=== PATIENT | male | born 1960 | race Caucasian/White ===

== ENCOUNTER 2016-12-23 12:40 | Inpatient (IN) | payer BC ==
[2016-12-23 13:02] VITALS: BMI 28.0
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
[2016-12-23] MEDS ORDERED: MAGNESIUM HYDROX 2400MG/30ML ORAL SUSPENSION 30 ML CUP PO PRN (16:34)
[2016-12-23] MEDS ORDERED: ACETAMINOPHEN 325 MG TABLET (FP) PO PRN (16:34)
[2016-12-23] MEDS ORDERED: chlordiazePOXIDE HCL 25 MG CAPSULE PO PRN (16:34)
[2016-12-23] MEDS ORDERED: MAG HYDROX/AL HYDROX/SIMETH 30 ML UNIT-DOSE CUP PO PRN (16:34)
[2016-12-23] MEDS ORDERED: guaiFENesin/D-METHORPHAN HB 10 ML UNIT-DOSE CUPS PO PRN (16:34)
[2016-12-23] MEDS ORDERED: P-EPHED 60MG/TRIPROLIDI 2.5MG TABLET PO PRN (16:34)
[2016-12-23] MEDS ORDERED: METHADONE HCL 10 MG TABLET (FOR DETOX USE ONLY) PO ONE ×2 (16:34→23:00)
[2016-12-23] MEDS ORDERED: MENTHOL/PHENOL 1 EACH UD MM PRN (16:34)
[2016-12-23] MEDS ORDERED: LOPERAMIDE HCL 2 MG CAPSULE PO PRN (16:34)
[2016-12-23] MEDS ORDERED: MAGNESIUM CITRATE 300 ML BOTTLE PO PRN (16:34)
[2016-12-23 20:56] LABS: URINE APPEARANCE CLEAR; URINE BILIRUBIN NEGATIVE (NEGATIVE); URINE BLOOD NEGATIVE (NEGATIVE); URINE COLOR YELLOW; URINE GLUCOSE (UA) NEGATIVE (NEGATIVE); URINE KETONE TRACE (NEGATIVE); URINE LEUK ESTERASE NEGATIVE (NEGATIVE); URINE NITRITE NEGATIVE (NEGATIVE); URINE PROTEIN NEGATIVE (NEGATIVE); URINE UROBILINOGEN NEGATIVE E.U./dl (0.2-1.0)
[2016-12-23] MEDS: THIAMINE HCL 100 MG TABLET (FP) PO SCH (22:04)
[2016-12-23] MEDS: BACITRACIN 0.9 GM PACKET TP SCH (22:04)
[2016-12-23] MEDS: TOLNAFTATE 1% CREAM 15 GM TUBE TP SCH (22:04)
[2016-12-23] MEDS: chlordiazePOXIDE HCL 25 MG CAPSULE PO SCH (22:04)
[2016-12-23] MEDS: diphenhydrAMINE HCL 50 MG CAPSULE PO PRN (22:05)
[2016-12-24] MEDS: chlordiazePOXIDE HCL 25 MG CAPSULE PO SCH ×4 (05:57→22:02)
[2016-12-24] MEDS ORDERED: METHADONE HCL 10 MG TABLET (FOR DETOX USE ONLY) PO SCH (10:00)
[2016-12-24 10:07] LABS: MCH 29.6 pg (25.7-33.7); MCHC 33.4 g/dl (32.0-35.9); MEAN CELL VOLUME 88.7 fl (80-96); MEAN PLT VOLUME 8.6 fl (7.5-11.1); PLATELET COUNT 216 K/MM3 (134-434); RDW 14.1 % (11.9-15.9); WHITE BLOOD COUNT 8.8 K/mm3 (4.0-10.0)
[2016-12-24] MEDS: PRENATAL VITAMINS W/ FOLIC ACID TABLET (FP) PO SCH (10:10)
[2016-12-24] MEDS: BACITRACIN 0.9 GM PACKET TP SCH ×2 (10:10→22:02)
[2016-12-24] MEDS: TOLNAFTATE 1% CREAM 15 GM TUBE TP SCH ×2 (10:11→22:02)
[2016-12-24 10:32] LABS: ALBUMIN 3.1 g/dl (3.4-5.0); ALK PHOS 66 U/L (45-117); ANION GAP 10 (8-16); BILIRUBIN,TOTAL 0.2 mg/dL (0.2-1.0); CALCIUM 8.5 mg/dL (8.5-10.1); CO2 25 mmol/L (21-32); CREATININE 1.1 mg/dL (0.7-1.3); GLUCOSE,RANDOM 89 mg/dL (74-106); SGOT/AST 21 U/L (15-37); SGPT/ALT 23 U/L (12-78); TOT PROT 6.1 g/dl (6.4-8.2)
--- NOTE | 2016-12-24 11:25 | PN ---
[facility] CIWA - CIWA Score Nausea/Vomitin-Int. Nausea w/Dry Heave Muscle Tremors: 4-Moderate,w/Arms Extend Anxiety: 4-Mod. Anxious/Guarded Agitation: 4-Moderately Restless Paroxysmal Sweats: 3 Orientation: 0-Oriented Tacttile Disturbances: 1-Very Mild Itch/Numbness Auditory Disturbances: 0-None Visual Disturbances: 0-None Headache: 0-None Present CIWA-Ar Total Score: 20 S COWS - Scale Resting Pulse: 1= [place] 81-100 Sweatin= Chills/Flushing Restless Observation: 1= Difficult to Sit Still Pupil Size: 1= Pupils >than Normal Bone or Joint Aches: 1= Mild Discomfort Runny Nose/ Eye Tearin= Nasal Congestion GI Upset > 30mins: 2= Nausea/Diarrhea Tremor Observation of Outstretched Hands: 2= Slight Tremor Visible Yawning Observation: 1= 1-2x During Session Anxiety or Irritability: 2=Irritable/Anxious Goose Flesh Skin: 3=Piloerection COWS Score: 16 S Progress Note (SOAP) Subjective: nausea, sweats, interrupted sleep, anxiety, tremor Objective: 12/24/16 11:23 Vital Signs - 8 hr 12/24/16 12/24/16 12/24/16 03:30 06:20 09:54 Temperature 97.3 F L 96.2 F L Pulse Rate 61 64 Respiratory 18 18 18 Rate Blood Pressure 164/98 129/90 Laboratory Tests 12/23/16 12/24/16 12/24/16 19:00 07:00 07:00 WBC 8.8 RBC 4.32 Hgb 12.8 Hct 38.4 MCV 88.7 MCHC 33.4 RDW 14.1 Plt Count 216 MPV 8.6 Sodium 140 Potassium 4.1 Chloride 105 Carbon Dioxide 25 Anion Gap 10 BUN 15 D Creatinine 1.1 Creat Clearance w eGFR > 60 Random Glucose 89 Calcium 8.5 Total Bilirubin 0.2 D AST 21 ALT 23 Alkaline Phosphatase 66 Total Protein 6.1 L Albumin 3.1 L Urine Color Yellow Urine Appearance Clear Urine pH 5.0 Ur Specific [place] 1.029 Urine Protein Negative Urine Glucose (UA) Negative Urine Ketones Trace H Urine Blood Negative Urine Nitrite Negative Urine Bilirubin Negative Urine Urobilinogen Negative Ur Leukocyte Esterase Negative hypoalbuminemia Assessment: 12/24/16 11:23 withdrawal sx, hypoalbuminemia 2/2 malnutrition 2/2 substance use Plan: cont detox, dieateray cousneling re: healthy eating habits, encoruage fluids and ambualtion
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
--- NOTE | 2016-12-24 16:11 | EKG ---
Test Reason : Blood Pressure : / mmHG Vent. Rate : 070 BPM Atrial Rate : 070 BPM P-R Int : 142 ms QRS Dur : 092 ms QT Int : 396 ms P-R-T Axes : 039 048 044 degrees QTc Int : 427 ms SINUS RHYTHM WITH PREMATURE ATRIAL COMPLEXES NO PREVIOUS ECGS AVAILABLE Confirmed by LLUVIA LOVE MD ([id number]) on 12/24/2016 4:11:26 PM Referred By: Confirmed By:LLUVIA LOVE MD
[2016-12-24] MEDS: THIAMINE HCL 100 MG TABLET (FP) PO SCH (22:02)
[2016-12-24] MEDS: diphenhydrAMINE HCL 50 MG CAPSULE PO PRN (22:03)
[2016-12-25] MEDS: chlordiazePOXIDE HCL 25 MG CAPSULE PO SCH ×3 (05:36→17:28)
--- NOTE | 2016-12-25 09:36 | PN ---
[facility] CIWA - CIWA Score Nausea/Vomitin-Mild Nausea/No Vomiting Muscle Tremors: 3 Anxiety: 3 Agitation: 3 Paroxysmal Sweats: 3 Orientation: 0-Oriented Tacttile Disturbances: 1-Very Mild Itch/Numbness Auditory Disturbances: 0-None Visual Disturbances: 0-None Headache: 1-Very Mild CIWA-Ar Total Score: 15 BHS COWS - Scale Resting Pulse: 0= [place] 80 or Below Sweatin= Chills/Flushing Restless Observation: 1= Difficult to Sit Still Pupil Size: 2= Moderately Dilated Bone or Joint Aches: 1= Mild Discomfort Runny Nose/ Eye Tearin= Nasal Congestion GI Upset > 30mins: 1= Stomach Cramp Tremor Observation of Outstretched Hands: 1= Tremor [place], Not Seen Yawning Observation: 0= None Anxiety or Irritability: 1=Feels Anxious/Irritable Goose Flesh Skin: 0=Smooth Skin COWS Score: 9 BHS Progress Note (SOAP) Subjective: Nausea, Tremors, Anxiety, Interrupted sleep Objective: Vital Signs Temperature 96.6 F L 12/25/16 06:04 Pulse Rate 72 12/25/16 06:04 Respiratory Rate 18 12/25/16 06:04 Blood Pressure 133/92 12/25/16 06:04 O2 Sat by Pulse Oximetry (%) Laboratory Last Values WBC 8.8 K/mm3 (4.0-10.0) 12/24/16 07:00 RBC 4.32 M/mm3 (4.00-5.60) 12/24/16 07:00 Hgb 12.8 GM/dL (11.7-16.9) 12/24/16 07:00 Hct 38.4 % (35.4-49) 12/24/16 07:00 MCV 88.7 fl (80-96) 12/24/16 07:00 MCHC 33.4 g/dl (32.0-35.9) 12/24/16 07:00 RDW 14.1 % (11.9-15.9) 12/24/16 07:00 Plt Count 216 K/MM3 (134-434) 12/24/16 07:00 MPV 8.6 fl (7.5-11.1) 12/24/16 07:00 Sodium 140 mmol/L (136-145) 12/24/16 07:00 Potassium 4.1 mmol/L (3.5-5.1) 12/24/16 07:00 Chloride 105 mmol/L (98-107) 12/24/16 07:00 Carbon Dioxide 25 mmol/L (21-32) 12/24/16 07:00 Anion Gap 10 (8-16) 12/24/16 07:00 BUN 15 mg/dL (7-18) D 12/24/16 07:00 Creatinine 1.1 mg/dL (0.7-1.3) 12/24/16 07:00 Creat Clearance w eGFR > 60 (>60) 12/24/16 07:00 Random Glucose 89 mg/dL (74-106) 12/24/16 07:00 Calcium 8.5 mg/dL (8.5-10.1) 12/24/16 07:00 Total Bilirubin 0.2 mg/dL (0.2-1.0) D 12/24/16 07:00 AST 21 U/L (15-37) 12/24/16 07:00 ALT 23 U/L (12-78) 12/24/16 07:00 Alkaline Phosphatase 66 U/L (45-117) 12/24/16 07:00 Total Protein 6.1 g/dl (6.4-8.2) L 12/24/16 07:00 Albumin 3.1 g/dl (3.4-5.0) L 12/24/16 07:00 Urine Color Yellow 12/23/16 19:00 Urine Appearance Clear 12/23/16 19:00 Urine pH 5.0 (5.0-8.0) 12/23/16 19:00 Ur Specific [place] 1.029 (1.001-1.035) 12/23/16 19:00 Urine Protein Negative (NEGATIVE) 12/23/16 19:00 Urine Glucose (UA) Negative (NEGATIVE) 12/23/16 19:00 Urine Ketones Trace (NEGATIVE) H 12/23/16 19:00 Urine Blood Negative (NEGATIVE) 12/23/16 19:00 Urine Nitrite Negative (NEGATIVE) 12/23/16 19:00 Urine Bilirubin Negative (NEGATIVE) 12/23/16 19:00 Urine Urobilinogen Negative E.U./dl (0.2-1.0) 12/23/16 19:00 Ur Leukocyte Esterase Negative (NEGATIVE) 12/23/16 19:00 RPR Titer Nonreactive (NONREACTIVE) 12/24/16 07:00 labs noted Assessment: 12/25/16 09:41 withdrawal symptoms 12/25/16 09:53 Plan: Continue Detox
[2016-12-25] MEDS: PRENATAL VITAMINS W/ FOLIC ACID TABLET (FP) PO SCH (10:07)
[2016-12-25] MEDS: BACITRACIN 0.9 GM PACKET TP SCH ×2 (10:07→22:04)
[2016-12-25] MEDS: METHADONE HCL 5 MG TABLET (FOR DETOX USE ONLY) PO SCH (10:08)
[2016-12-25] MEDS: TOLNAFTATE 1% CREAM 15 GM TUBE TP SCH ×2 (10:08→22:04)
[2016-12-25] MEDS ORDERED: NICOTINE POLACRILEX 2 MG GUM BUC PRN (12:32)
[2016-12-25] MEDS: NICOTINE 21 MG/24 HOURS TOPICAL PATCH TD SCH (13:11)
[2016-12-25] MEDS: THIAMINE HCL 100 MG TABLET (FP) PO SCH (22:04)
[2016-12-25] MEDS: diphenhydrAMINE HCL 50 MG CAPSULE PO PRN (22:04)
[2016-12-25] MEDS: chlordiazePOXIDE 5 MG CAPSULE PO SCH (22:04)
[2016-12-25] MEDS: AMMONIUM LACTATE 12% LOTION 225 GM BOTTLE TP PRN (22:59)
[2016-12-26] MEDS: chlordiazePOXIDE 5 MG CAPSULE PO SCH ×3 (05:42→17:11)
[2016-12-26] MEDS: PRENATAL VITAMINS W/ FOLIC ACID TABLET (FP) PO SCH (10:01)
[2016-12-26] MEDS: NICOTINE 21 MG/24 HOURS TOPICAL PATCH TD SCH (10:01)
[2016-12-26] MEDS: TOLNAFTATE 1% CREAM 15 GM TUBE TP SCH ×3 (10:01→22:02)
[2016-12-26] MEDS: BACITRACIN 0.9 GM PACKET TP SCH ×2 (10:01→22:03)
[2016-12-26] MEDS: METHADONE HCL 5 MG TABLET (FOR DETOX USE ONLY) PO SCH (10:01)
--- NOTE | 2016-12-26 12:11 | PN ---
BHS Progress Note (SOAP) Subjective: Anxiety, sweating, interrupted sleep Objective: 12/26/16 12:09 Last Vital Signs Temp Pulse Resp BP Pulse Ox 97.5 F L 92 H 20 105/74 12/26/16 09:42 12/26/16 09:42 12/26/16 09:42 12/26/16 09:42 Laboratory Tests 12/23/16 12/24/16 12/24/16 19:00 07:00 07:00 WBC 8.8 RBC 4.32 Hgb 12.8 Hct 38.4 MCV 88.7 MCHC 33.4 RDW 14.1 Plt Count 216 MPV 8.6 Sodium 140 Potassium 4.1 Chloride 105 Carbon Dioxide 25 Anion Gap 10 BUN 15 D Creatinine 1.1 Creat Clearance w eGFR > 60 Random Glucose 89 Calcium 8.5 Total Bilirubin 0.2 D AST 21 ALT 23 Alkaline Phosphatase 66 Total Protein 6.1 L Albumin 3.1 L Urine Color Yellow Urine Appearance Clear Urine pH 5.0 Ur Specific [place] 1.029 Urine Protein Negative Urine Glucose (UA) Negative Urine Ketones Trace H Urine Blood Negative Urine Nitrite Negative Urine Bilirubin Negative Urine Urobilinogen Negative Ur Leukocyte Esterase Negative RPR Titer 12/24/16 07:00 WBC RBC Hgb Hct MCV MCHC RDW Plt Count MPV Sodium Potassium Chloride Carbon Dioxide Anion Gap BUN Creatinine Creat Clearance w eGFR Random Glucose Calcium Total Bilirubin AST ALT Alkaline Phosphatase Total Protein Albumin Urine Color Urine Appearance Urine pH Ur Specific [place] Urine Protein Urine Glucose (UA) Urine Ketones Urine Blood Urine Nitrite Urine Bilirubin Urine Urobilinogen Ur Leukocyte Esterase RPR Titer Nonreactive Labs noted Assessment: 12/26/16 12:10 Withdrawal symptoms Plan: Continue detox
[2016-12-26] MEDS: IBUPROFEN 400 MG TABLET (FP) PO PRN (17:10)
[2016-12-26] MEDS: diphenhydrAMINE HCL 50 MG CAPSULE PO PRN (22:03)
[2016-12-26] MEDS: THIAMINE HCL 100 MG TABLET (FP) PO SCH (22:03)
[2016-12-26] MEDS: chlordiazePOXIDE HCL 10 MG CAPSULE PO SCH (22:03)
[2016-12-26] MEDS: AMMONIUM LACTATE 12% LOTION 225 GM BOTTLE TP PRN (22:03)
[2016-12-27] MEDS: diphenhydrAMINE HCL 50 MG CAPSULE PO PRN ×2 (00:07→22:07)
[2016-12-27] MEDS: chlordiazePOXIDE HCL 10 MG CAPSULE PO SCH ×3 (05:37→16:53)
[2016-12-27] MEDS ORDERED: METHADONE HCL 10 MG TABLET (FOR DETOX USE ONLY) PO SCH (10:00)
[2016-12-27] MEDS: PRENATAL VITAMINS W/ FOLIC ACID TABLET (FP) PO SCH (10:02)
[2016-12-27] MEDS: BACITRACIN 0.9 GM PACKET TP SCH ×2 (10:02→22:07)
[2016-12-27] MEDS: TOLNAFTATE 1% CREAM 15 GM TUBE TP SCH ×2 (10:03→22:07)
[2016-12-27] MEDS: NICOTINE 21 MG/24 HOURS TOPICAL PATCH TD SCH (10:03)
--- NOTE | 2016-12-27 10:53 | PN ---
BHS Progress Note (SOAP) Subjective: SWEATING,INTERRUPTED SLEEP,RESTLESS Objective: 12/27/16 10:52 Vital Signs - 8 hr 12/27/16 12/27/16 12/27/16 03:30 05:55 09:31 Temperature 96.0 F L 97.5 F L Pulse Rate 68 76 Respiratory 18 18 18 Rate Blood Pressure 126/88 112/79 Laboratory Last Values WBC 8.8 K/mm3 (4.0-10.0) 12/24/16 07:00 RBC 4.32 M/mm3 (4.00-5.60) 12/24/16 07:00 Hgb 12.8 GM/dL (11.7-16.9) 12/24/16 07:00 Hct 38.4 % (35.4-49) 12/24/16 07:00 MCV 88.7 fl (80-96) 12/24/16 07:00 MCHC 33.4 g/dl (32.0-35.9) 12/24/16 07:00 RDW 14.1 % (11.9-15.9) 12/24/16 07:00 Plt Count 216 K/MM3 (134-434) 12/24/16 07:00 MPV 8.6 fl (7.5-11.1) 12/24/16 07:00 Sodium 140 mmol/L (136-145) 12/24/16 07:00 Potassium 4.1 mmol/L (3.5-5.1) 12/24/16 07:00 Chloride 105 mmol/L (98-107) 12/24/16 07:00 Carbon Dioxide 25 mmol/L (21-32) 12/24/16 07:00 Anion Gap 10 (8-16) 12/24/16 07:00 BUN 15 mg/dL (7-18) D 12/24/16 07:00 Creatinine 1.1 mg/dL (0.7-1.3) 12/24/16 07:00 Creat Clearance w eGFR > 60 (>60) 12/24/16 07:00 Random Glucose 89 mg/dL (74-106) 12/24/16 07:00 Calcium 8.5 mg/dL (8.5-10.1) 12/24/16 07:00 Total Bilirubin 0.2 mg/dL (0.2-1.0) D 12/24/16 07:00 AST 21 U/L (15-37) 12/24/16 07:00 ALT 23 U/L (12-78) 12/24/16 07:00 Alkaline Phosphatase 66 U/L (45-117) 12/24/16 07:00 Total Protein 6.1 g/dl (6.4-8.2) L 12/24/16 07:00 Albumin 3.1 g/dl (3.4-5.0) L 12/24/16 07:00 Urine Color Yellow 12/23/16 19:00 Urine Appearance Clear 12/23/16 19:00 Urine pH 5.0 (5.0-8.0) 12/23/16 19:00 Ur Specific [place] 1.029 (1.001-1.035) 12/23/16 19:00 Urine Protein Negative (NEGATIVE) 12/23/16 19:00 Urine Glucose (UA) Negative (NEGATIVE) 12/23/16 19:00 Urine Ketones Trace (NEGATIVE) H 12/23/16 19:00 Urine Blood Negative (NEGATIVE) 12/23/16 19:00 Urine Nitrite Negative (NEGATIVE) 12/23/16 19:00 Urine Bilirubin Negative (NEGATIVE) 12/23/16 19:00 Urine Urobilinogen Negative E.U./dl (0.2-1.0) 12/23/16 19:00 Ur Leukocyte Esterase Negative (NEGATIVE) 12/23/16 19:00 RPR Titer Nonreactive (NONREACTIVE) 12/24/16 07:00 LABS NOTED Assessment: 12/27/16 10:53 WITHDRAWAL SX. Plan: CONTINUE DETOX
[2016-12-27] MEDS: IBUPROFEN 400 MG TABLET (FP) PO PRN (16:54)
[2016-12-27] MEDS: THIAMINE HCL 100 MG TABLET (FP) PO SCH (22:07)
[2016-12-28] MEDS ORDERED: METHADONE HCL 5 MG TABLET (FOR DETOX USE ONLY) PO SCH (06:00)
[2016-12-28 06:17] VITALS: BP 109/70; PULSE 74; TEMP 97.1
[2016-12-28] MEDS: NICOTINE 21 MG/24 HOURS TOPICAL PATCH TD SCH (09:25)
[2016-12-28] MEDS: PRENATAL VITAMINS W/ FOLIC ACID TABLET (FP) PO SCH (09:25)
--- NOTE | 2016-12-28 13:53 | DS ---
[facility] Detox Discharge Summary Admission Date: 12/23/16 Discharge Date: 12/28/16 - History Present History: Alcohol Dependence, Cocaine Dependence, Opioid Dependence Pertinent Past History: HEP C - Physical Exam Results Vital Signs: Vital Signs Temperature 97.1 F L 12/28/16 06:16 Pulse Rate 74 12/28/16 06:16 Respiratory Rate 16 12/28/16 06:16 Blood Pressure 109/70 12/28/16 06:16 O2 Sat by Pulse Oximetry (%) Pertinent Admission Physical Exam Findings: WITHDRAWAL SX. Laboratory Last Values WBC 8.8 K/mm3 (4.0-10.0) 12/24/16 07:00 RBC 4.32 M/mm3 (4.00-5.60) 12/24/16 07:00 Hgb 12.8 GM/dL (11.7-16.9) 12/24/16 07:00 Hct 38.4 % (35.4-49) 12/24/16 07:00 MCV 88.7 fl (80-96) 12/24/16 07:00 MCHC 33.4 g/dl (32.0-35.9) 12/24/16 07:00 RDW 14.1 % (11.9-15.9) 12/24/16 07:00 Plt Count 216 K/MM3 (134-434) 12/24/16 07:00 MPV 8.6 fl (7.5-11.1) 12/24/16 07:00 Sodium 140 mmol/L (136-145) 12/24/16 07:00 Potassium 4.1 mmol/L (3.5-5.1) 12/24/16 07:00 Chloride 105 mmol/L (98-107) 12/24/16 07:00 Carbon Dioxide 25 mmol/L (21-32) 12/24/16 07:00 Anion Gap 10 (8-16) 12/24/16 07:00 BUN 15 mg/dL (7-18) D 12/24/16 07:00 Creatinine 1.1 mg/dL (0.7-1.3) 12/24/16 07:00 Creat Clearance w eGFR > 60 (>60) 12/24/16 07:00 Random Glucose 89 mg/dL (74-106) 12/24/16 07:00 Calcium 8.5 mg/dL (8.5-10.1) 12/24/16 07:00 Total Bilirubin 0.2 mg/dL (0.2-1.0) D 12/24/16 07:00 AST 21 U/L (15-37) 12/24/16 07:00 ALT 23 U/L (12-78) 12/24/16 07:00 Alkaline Phosphatase 66 U/L (45-117) 12/24/16 07:00 Total Protein 6.1 g/dl (6.4-8.2) L 12/24/16 07:00 Albumin 3.1 g/dl (3.4-5.0) L 12/24/16 07:00 Urine Color Yellow 12/23/16 19:00 Urine Appearance Clear 12/23/16 19:00 Urine pH 5.0 (5.0-8.0) 12/23/16 19:00 Ur Specific [place] 1.029 (1.001-1.035) 12/23/16 19:00 Urine Protein Negative (NEGATIVE) 12/23/16 19:00 Urine Glucose (UA) Negative (NEGATIVE) 12/23/16 19:00 Urine Ketones Trace (NEGATIVE) H 12/23/16 19:00 Urine Blood Negative (NEGATIVE) 12/23/16 19:00 Urine Nitrite Negative (NEGATIVE) 12/23/16 19:00 Urine Bilirubin Negative (NEGATIVE) 12/23/16 19:00 Urine Urobilinogen Negative E.U./dl (0.2-1.0) 12/23/16 19:00 Ur Leukocyte Esterase Negative (NEGATIVE) 12/23/16 19:00 RPR Titer Nonreactive (NONREACTIVE) 12/24/16 07:00 LABS NOTED - Treatment Hospital Course: Detox Protocol Followed, Detoxed Safely, Responded well, Discharged Condition Good, Rehab Referral Accepted - Medication Discharge Medications: Ambulatory Orders NK [No Known Home Medication] 12/23/16 - Diagnosis (1) Alcohol dependence with uncomplicated withdrawal Status: Acute (2) Cocaine dependence Status: Acute Qualifiers: Substance use status: uncomplicated Qualified Code(s): F14.20 - Cocaine dependence, uncomplicated (3) Nicotine dependence Status: Acute Qualifiers: Nicotine product type: cigarettes Substance use status: uncomplicated Qualified Code(s): F17.210 - Nicotine dependence, cigarettes, uncomplicated (4) Opioid dependence with withdrawal Status: Acute - AMA Did Patient Leave Against Medical Advice: No
== END 2016-12-28 09:00 | disposition home or self-care (01) | DRG 773 ==
LOC: YASAS 12:40 → Y3N 17:11
PROVIDERS: ADMIT Internal Medicine; ATTEND Internal Medicine
PROC: HZ2ZZZZ Detoxification Services for Substance Abuse Treatment (ICD-10-PCS; principal; 2016-12-28)
DX: F11.23 Opioid dependence with withdrawal (principal); F10.230 Alcohol dependence with withdrawal, uncomplicated; F14.20 Cocaine dependence, uncomplicated; F17.210 Nicotine dependence, cigarettes, uncomplicated; Z59.0 Homelessness
CPT/HCPCS: 36415; 80053; 81003; 85027; 86593; 93005; 93010

== ENCOUNTER 2020-10-16 09:08 | Inpatient (IN) | payer BC ==
[2020-10-16 10:22] VITALS: BMI 27.8
[2020-10-16] MEDS ORDERED: NICOTINE POLACRILEX 2 MG GUM BUC PRN (10:51)
[2020-10-16] MEDS ORDERED: cloNIDine HCL 0.1 MG TABLET PO PRN (10:51)
[2020-10-16] MEDS ORDERED: ACETAMINOPHEN 325 MG TABLET (FP) PO PRN ×2 (10:51)
[2020-10-16] MEDS ORDERED: MENTHOL/PHENOL 1 EACH UD MM PRN (10:51)
[2020-10-16] MEDS ORDERED: MAG HYDROX/AL HYDROX/SIMETH 30 ML UNIT-DOSE CUP PO PRN (10:51)
[2020-10-16] MEDS ORDERED: IBUPROFEN 400 MG TABLET (FP) PO PRN (10:51)
[2020-10-16] MEDS ORDERED: MAGNESIUM CITRATE 300 ML BOTTLE PO PRN (10:51)
[2020-10-16] MEDS ORDERED: ONDANSETRON *ODT* 4 MG TABLET SL PRN (10:51)
[2020-10-16] MEDS ORDERED: MAGNESIUM HYDROX 2400MG/30ML ORAL SUSPENSION 30 ML CUP PO PRN (10:51)
[2020-10-16] MEDS ORDERED: BISMUTH SUBSALICYLATE 524 MG/30 ML UD PO PRN (10:51)
[2020-10-16] MEDS ORDERED: METHADONE HCL 10 MG TABLET (FOR DETOX USE ONLY) PO ONE (11:00)
[2020-10-16] MEDS: NICOTINE 7 MG/24 HOURS TOPICAL PATCH TD SCH (12:38)
[2020-10-16] MEDS: PRENATAL VITAMINS W/ FOLIC ACID TABLET (FP) PO SCH (13:21)
[2020-10-16] MEDS: hydrOXYzine PAMOATE 25 MG CAPSULE (FP) PO SCH ×3 (14:20→22:30)
[2020-10-16 15:01] LABS: HEMATOCRIT 36.3 % (35.4-49); MCHC 33.1 g/dl (32.0-35.9); MEAN CELL VOLUME 87.4 fl (80-96); MEAN PLT VOLUME 8.4 fl (7.5-11.1); PLATELET COUNT 282 K/MM3 (134-434); RBC 4.15 M/mm3 (4.00-5.60); RDW 13.2 % (11.9-15.9); WHITE BLOOD COUNT 9.9 K/mm3 (4.0-10.0)
[2020-10-16 15:21] LABS: POTASSIUM 4.5 mmol/L (3.5-5.1)
[2020-10-16 15:24] LABS: CALCIUM 9.7 mg/dL (8.5-10.1)
[2020-10-16 15:25] LABS: ALBUMIN 3.8 g/dl (3.4-5.0); BLOOD UREA NITROGEN 26.3 mg/dL (7-18)
[2020-10-16 15:27] LABS: CREATININE 1.2 mg/dL (0.55-1.3)
[2020-10-16 15:29] LABS: BILIRUBIN,TOTAL 0.5 mg/dL (0.2-1); TOT PROT 7.5 g/dl (6.4-8.2)
[2020-10-16] MEDS: THIAMINE HCL 100 MG TABLET (FP) PO SCH (22:30)
[2020-10-16] MEDS: MELATONIN 5 MG TABLETS PO SCH (22:30)
[2020-10-17] MEDS: hydrOXYzine PAMOATE 25 MG CAPSULE (FP) PO SCH (05:47)
[2020-10-17] MEDS ORDERED: hydrOXYzine PAMOATE 25 MG CAPSULE (FP) PO PRN (08:43)
[2020-10-17] MEDS ORDERED: METHADONE (DETOX) 20 MG, METHADONE (DETOX) 5 MG PO ONE (10:00)
[2020-10-17] MEDS ORDERED: METHADONE HCL 10 MG TABLET (FOR DETOX USE ONLY) ONE (10:01)
[2020-10-17] MEDS ORDERED: METHADONE HCL 5 MG TABLET (FOR DETOX USE ONLY) ONE (10:01)
[2020-10-17] MEDS: PRENATAL VITAMINS W/ FOLIC ACID TABLET (FP) PO SCH (10:22)
[2020-10-17] MEDS: NICOTINE 7 MG/24 HOURS TOPICAL PATCH TD SCH (10:22)
[2020-10-17] MEDS: METHOCARBAMOL 500 MG TABLET PO PRN (19:17)
[2020-10-17] MEDS: MELATONIN 5 MG TABLETS PO SCH (23:26)
[2020-10-17] MEDS: THIAMINE HCL 100 MG TABLET (FP) PO SCH (23:26)
[2020-10-18] MEDS: diazePAM 5 MG TABLET PO PRN ×2 (07:08→17:32)
[2020-10-18] MEDS ORDERED: METHADONE HCL 10 MG TABLET (FOR DETOX USE ONLY) PO ONE (10:00)
[2020-10-18] MEDS: PRENATAL VITAMINS W/ FOLIC ACID TABLET (FP) PO SCH (10:17)
[2020-10-18] MEDS: NICOTINE 7 MG/24 HOURS TOPICAL PATCH TD SCH (10:17)
[2020-10-18] MEDS: THIAMINE HCL 100 MG TABLET (FP) PO SCH (22:58)
[2020-10-18] MEDS: MELATONIN 5 MG TABLETS PO SCH (22:58)
[2020-10-19] MEDS ORDERED: METHADONE HCL 5 MG TABLET (FOR DETOX USE ONLY) ONE (09:07)
[2020-10-19] MEDS ORDERED: METHADONE HCL 10 MG TABLET (FOR DETOX USE ONLY) ONE (09:08)
[2020-10-19] MEDS ORDERED: METHADONE (DETOX) 10 MG, METHADONE (DETOX) 5 MG PO ONE (10:00)
[2020-10-19] MEDS: NICOTINE 7 MG/24 HOURS TOPICAL PATCH TD SCH (10:39)
[2020-10-19] MEDS: PRENATAL VITAMINS W/ FOLIC ACID TABLET (FP) PO SCH (10:39)
[2020-10-19] MEDS: diazePAM 5 MG TABLET PO PRN ×2 (12:41→19:24)
[2020-10-19] MEDS: METHOCARBAMOL 500 MG TABLET PO PRN (14:42)
[2020-10-19] MEDS: THIAMINE HCL 100 MG TABLET (FP) PO SCH (21:51)
[2020-10-19] MEDS: MELATONIN 5 MG TABLETS PO SCH (21:52)
[2020-10-20] MEDS: NICOTINE 7 MG/24 HOURS TOPICAL PATCH TD SCH (09:08)
[2020-10-20] MEDS: PRENATAL VITAMINS W/ FOLIC ACID TABLET (FP) PO SCH (09:08)
[2020-10-20 09:16] VITALS: BP 121/81; PULSE 80; TEMP 97.3
[2020-10-20] MEDS ORDERED: METHADONE HCL 10 MG TABLET (FOR DETOX USE ONLY) PO ONE (10:00)
[2020-10-21] MEDS ORDERED: METHADONE HCL 5 MG TABLET (FOR DETOX USE ONLY) PO ONE (06:00)
== END 2020-10-20 10:25 | disposition home or self-care (01) | DRG 773 ==
LOC: YASAS 09:08 → Y6N 11:54
PROVIDERS: ADMIT Allergy & Immunology; ATTEND Allergy & Immunology
PROC: HZ2ZZZZ Detoxification Services for Substance Abuse Treatment (ICD-10-PCS; principal; 2020-10-16)
DX: F11.23 Opioid dependence with withdrawal (principal); F14.20 Cocaine dependence, uncomplicated; F17.210 Nicotine dependence, cigarettes, uncomplicated; F19.282 Other psychoactive substance dependence with psychoactive substance-induced sleep disorder; F19.24 Other psychoactive substance dependence with psychoactive substance-induced mood disorder; E87.1 Hypo-osmolality and hyponatremia; B18.2 Chronic viral hepatitis C; R79.89 Other specified abnormal findings of blood chemistry; Z87.828 Personal history of other (healed) physical injury and trauma; Z87.11 Personal history of peptic ulcer disease; Z98.890 Other specified postprocedural states
CPT/HCPCS: 36415; 71046-TC-FY; 80053; 82962; 85027; 86780; C9803; U0003

== ENCOUNTER 2021-11-06 14:14 | Inpatient (IN) | payer BC ==
[2021-11-06] MEDS ORDERED: NICOTINE 10 MG CARTRIDGE (INHALER) IH PRN (16:42)
[2021-11-06] MEDS ORDERED: ONDANSETRON *ODT* 4 MG TABLET SL PRN (16:42)
[2021-11-06] MEDS ORDERED: diazePAM 5 MG TABLET PO PRN (16:42)
[2021-11-06] MEDS ORDERED: methaDONE HCL 10 MG TABLET (FOR DETOX USE ONLY) PO ONE (16:42)
[2021-11-06] MEDS ORDERED: MAGNESIUM CITRATE 300 ML BOTTLE PO PRN (16:42)
[2021-11-06] MEDS ORDERED: MAG HYDROX/AL HYDROX/SIMETH 30 ML UNIT-DOSE CUP PO PRN (16:42)
[2021-11-06] MEDS ORDERED: METHOCARBAMOL 500 MG TABLET PO PRN (16:42)
[2021-11-06] MEDS ORDERED: BISMUTH SUBSALICYLATE 524 MG/30 ML PO PRN (16:42)
[2021-11-06] MEDS ORDERED: cloNIDine HCL 0.1 MG TABLET PO PRN (16:42)
[2021-11-06] MEDS ORDERED: IBUPROFEN 400 MG TABLET (FP) PO PRN (16:42)
[2021-11-06] MEDS ORDERED: MENTHOL/PHENOL 1 EACH UD MM PRN (16:42)
[2021-11-06] MEDS ORDERED: ACETAMINOPHEN 325 MG TABLET (FP) PO PRN ×2 (16:42)
[2021-11-06] MEDS ORDERED: MAGNESIUM HYDROX 2400MG/30ML ORAL SUSPENSION 30 ML CUP PO PRN (16:42)
[2021-11-06 18:39] VITALS: BMI 27.2
[2021-11-06] MEDS: hydrOXYzine PAMOATE 25 MG CAPSULE (FP) PO SCH ×2 (19:01→23:23)
[2021-11-06] MEDS: diazePAM 5 MG TABLET PO SCH ×2 (19:10→23:23)
[2021-11-06] MEDS: GABAPENTIN 300 MG CAPSULE PO SCH (23:23)
[2021-11-06] MEDS: THIAMINE HCL 100 MG TABLET (FP) PO SCH (23:23)
[2021-11-06] MEDS: MELATONIN 5 MG TABLETS PO SCH (23:23)
[2021-11-07] MEDS: diazePAM 5 MG TABLET PO SCH ×4 (06:20→22:41)
[2021-11-07] MEDS: hydrOXYzine PAMOATE 25 MG CAPSULE (FP) PO SCH ×5 (06:21→22:41)
[2021-11-07] MEDS ORDERED: methaDONE HCL 10 MG TABLET (FOR DETOX USE ONLY) ONE (09:42)
[2021-11-07] MEDS: GABAPENTIN 300 MG CAPSULE PO SCH ×2 (10:13→22:41)
[2021-11-07] MEDS: PRENATAL VITAMINS W/ FOLIC ACID TABLET (FP) PO SCH (10:13)
[2021-11-07] MEDS: THIAMINE HCL 100 MG TABLET (FP) PO SCH (22:41)
[2021-11-07] MEDS: MELATONIN 5 MG TABLETS PO SCH (22:41)
[2021-11-08] MEDS: diazePAM 5 MG TABLET PO SCH ×3 (07:12→22:58)
[2021-11-08] MEDS: hydrOXYzine PAMOATE 25 MG CAPSULE (FP) PO SCH ×5 (07:13→22:58)
[2021-11-08 09:53] LABS: CALCIUM 9.7 mg/dL (8.5-10.1)
[2021-11-08 09:55] LABS: ALBUMIN 3.4 g/dl (3.4-5.0); BLOOD UREA NITROGEN 16.5 mg/dL (7-18)
[2021-11-08 10:00] LABS: BILIRUBIN,TOTAL 0.6 mg/dL (0.2-1); TOT PROT 7.6 g/dl (6.4-8.2)
[2021-11-08] MEDS ORDERED: methaDONE HCL 10 MG TABLET (FOR DETOX USE ONLY) PO ONE (10:00)
[2021-11-08 10:02] LABS: HEMATOCRIT 40.6 % (35.4-49); HEMOGLOBIN 13.9 GM/dL (11.7-16.9); MCH 29.6 pg (25.7-33.7); MCHC 34.2 g/dl (32.0-35.9); MEAN CELL VOLUME 86.4 fl (80-96); MEAN PLT VOLUME 8.2 fl (7.5-11.1); PLATELET COUNT 220 10^3/uL (134-434); RDW 14.4 % (11.9-15.9); WHITE BLOOD COUNT 6.6 K/mm3 (4.0-10.0)
[2021-11-08] MEDS: GABAPENTIN 300 MG CAPSULE PO SCH ×2 (10:09→22:58)
[2021-11-08] MEDS: PRENATAL VITAMINS W/ FOLIC ACID TABLET (FP) PO SCH (10:11)
[2021-11-08] MEDS: MELATONIN 5 MG TABLETS PO SCH (22:59)
[2021-11-08] MEDS: THIAMINE HCL 100 MG TABLET (FP) PO SCH (22:59)
[2021-11-09] MEDS ORDERED: diazePAM 5 MG TABLET PO SCH (06:00)
[2021-11-09] MEDS: hydrOXYzine PAMOATE 25 MG CAPSULE (FP) PO SCH ×2 (07:21→10:37)
[2021-11-09] MEDS ORDERED: methaDONE HCL 10 MG TABLET (FOR DETOX USE ONLY) ONE (09:35)
[2021-11-09] MEDS: PRENATAL VITAMINS W/ FOLIC ACID TABLET (FP) PO SCH (10:37)
[2021-11-09] MEDS: GABAPENTIN 300 MG CAPSULE PO SCH (10:37)
[2021-11-09] MEDS ORDERED: cloNIDine HCL 0.1 MG TABLET PO PRN (13:44)
[2021-11-10] MEDS: MELATONIN 5 MG TABLETS PO SCH ×2 (00:22→22:03)
[2021-11-10] MEDS: GABAPENTIN 300 MG CAPSULE PO SCH ×3 (00:22→22:03)
[2021-11-10] MEDS: THIAMINE HCL 100 MG TABLET (FP) PO SCH ×2 (00:23→22:03)
[2021-11-10] MEDS ORDERED: diazePAM 5 MG TABLET PO ONE (06:00)
[2021-11-10] MEDS ORDERED: methaDONE HCL 10 MG TABLET (FOR DETOX USE ONLY) PO ONE (10:00)
[2021-11-10] MEDS: PRENATAL VITAMINS W/ FOLIC ACID TABLET (FP) PO SCH (10:06)
[2021-11-11 09:07] VITALS: BP 118/83; PULSE 89; TEMP 98.7
[2021-11-11] MEDS: GABAPENTIN 300 MG CAPSULE PO SCH (10:00)
[2021-11-11] MEDS: PRENATAL VITAMINS W/ FOLIC ACID TABLET (FP) PO SCH (10:00)
== END 2021-11-11 09:25 | disposition home or self-care (01) | DRG 773 ==
LOC: YASAS 14:14 → Y6N 18:23
PROVIDERS: ADMIT Allergy & Immunology; ATTEND Allergy & Immunology
PROC: HZ2ZZZZ Detoxification Services for Substance Abuse Treatment (ICD-10-PCS; principal; 2021-11-06)
DX: F11.23 Opioid dependence with withdrawal (principal); F13.230 Sedative, hypnotic or anxiolytic dependence with withdrawal, uncomplicated; F14.20 Cocaine dependence, uncomplicated; F17.213 Nicotine dependence, cigarettes, with withdrawal; B18.2 Chronic viral hepatitis C; R73.09 Other abnormal glucose; R03.0 Elevated blood-pressure reading, without diagnosis of hypertension; G25.81 Restless legs syndrome; Z86.11 Personal history of tuberculosis; Z87.828 Personal history of other (healed) physical injury and trauma
CPT/HCPCS: 36415; 80053; 82962; 85027; 86780; C9803; J0735; U0003; U0005

== ENCOUNTER 2022-02-22 15:35 | Inpatient (IN) | payer BC ==
[2022-02-22] MEDS ORDERED: BISMUTH SUBSALICYLATE 524 MG/30 ML PO PRN (21:03)
[2022-02-22] MEDS ORDERED: hydrOXYzine PAMOATE 25 MG CAPSULE (FP) PO PRN (21:03)
[2022-02-22] MEDS ORDERED: IBUPROFEN 400 MG TABLET (FP) PO PRN (21:03)
[2022-02-22] MEDS ORDERED: LOPERAMIDE HCL 2 MG CAPSULE PO PRN (21:03)
[2022-02-22] MEDS ORDERED: ONDANSETRON *ODT* 4 MG TABLET SL PRN (21:03)
[2022-02-22] MEDS ORDERED: MAGNESIUM CITRATE 300 ML BOTTLE PO PRN (21:03)
[2022-02-22] MEDS ORDERED: MAGNESIUM HYDROX 2400MG/30ML ORAL SUSPENSION 30 ML CUP PO PRN (21:03)
[2022-02-22] MEDS ORDERED: MENTHOL/PHENOL 1 EACH UD MM PRN (21:03)
[2022-02-22] MEDS ORDERED: ACETAMINOPHEN 325 MG TABLET (FP) PO PRN ×2 (21:03)
[2022-02-22] MEDS ORDERED: MAG HYDROX/AL HYDROX/SIMETH 30 ML UNIT-DOSE CUP PO PRN (21:03)
[2022-02-22] MEDS ORDERED: methaDONE HCL 10 MG TABLET (FOR DETOX USE ONLY) PO ONE (21:06)
[2022-02-22] MEDS ORDERED: cloNIDine HCL 0.1 MG TABLET PO PRN (21:06)
[2022-02-22 21:32] VITALS: BMI 26.5
[2022-02-22] MEDS ORDERED: GABAPENTIN 100 MG CAPSULE PO SCH (22:00)
[2022-02-22] MEDS: diazePAM 5 MG TABLET PO SCH (23:14)
[2022-02-22] MEDS: GABAPENTIN 100 MG CAPSULE PO SCH (23:15)
[2022-02-22] MEDS: THIAMINE HCL 100 MG TABLET (FP) PO SCH (23:22)
[2022-02-23] MEDS: diazePAM 5 MG TABLET PO SCH ×4 (06:31→22:26)
[2022-02-23] MEDS ORDERED: methaDONE HCL 10 MG TABLET (FOR DETOX USE ONLY) ONE (09:21)
[2022-02-23] MEDS: PRENATAL VITAMINS W/ FOLIC ACID TABLET (FP) PO SCH (11:09)
[2022-02-23] MEDS: NICOTINE 14 MG/24 HOURS TOPICAL PATCH TD SCH (11:09)
[2022-02-23 11:14] LABS: HEMATOCRIT 36.9 % (35.4-49); HEMOGLOBIN 12.1 GM/dL (11.7-16.9); MCHC 32.7 g/dl (32.0-35.9); MEAN CELL VOLUME 88.7 fl (80-96); MEAN PLT VOLUME 8.6 fl (7.5-11.1); PLATELET COUNT 194 10^3/uL (134-434); RBC 4.16 M/mm3 (4.00-5.60); RDW 14.4 % (11.9-15.9); WHITE BLOOD COUNT 5.8 K/mm3 (4.0-10.0)
[2022-02-23 11:28] LABS: CALCIUM 9.5 mg/dL (8.5-10.1)
[2022-02-23 11:29] LABS: ALBUMIN 3.5 g/dl (3.4-5.0)
[2022-02-23 11:32] LABS: CREATININE 0.8 mg/dL (0.55-1.3)
[2022-02-23 11:33] LABS: BILIRUBIN,TOTAL 0.6 mg/dL (0.2-1)
[2022-02-23] MEDS: THIAMINE HCL 100 MG TABLET (FP) PO SCH (22:24)
[2022-02-23] MEDS: MELATONIN 5 MG TABLETS PO PRN (22:24)
[2022-02-23] MEDS: GABAPENTIN 100 MG CAPSULE PO SCH (22:25)
[2022-02-24 06:06] LABS: SARS-CoV-2 NAA Not Detected (Not Detected)
[2022-02-24] MEDS: diazePAM 5 MG TABLET PO SCH ×3 (07:13→22:39)
[2022-02-24] MEDS ORDERED: methaDONE HCL 10 MG TABLET (FOR DETOX USE ONLY) PO ONE (10:00)
[2022-02-24] MEDS: NICOTINE 14 MG/24 HOURS TOPICAL PATCH TD SCH (10:28)
[2022-02-24] MEDS: PRENATAL VITAMINS W/ FOLIC ACID TABLET (FP) PO SCH (10:30)
[2022-02-24] MEDS: diazePAM 5 MG TABLET PO PRN (10:30)
[2022-02-24] MEDS: GABAPENTIN 100 MG CAPSULE PO SCH (22:39)
[2022-02-24] MEDS: THIAMINE HCL 100 MG TABLET (FP) PO SCH (22:39)
[2022-02-24] MEDS: MELATONIN 5 MG TABLETS PO PRN (22:40)
[2022-02-25] MEDS: diazePAM 5 MG TABLET PO SCH ×2 (07:28→17:56)
[2022-02-25] MEDS ORDERED: methaDONE HCL 10 MG TABLET (FOR DETOX USE ONLY) ONE (09:02)
[2022-02-25] MEDS: METHOCARBAMOL 500 MG TABLET PO PRN (10:06)
[2022-02-25] MEDS: diazePAM 5 MG TABLET PO PRN (10:08)
[2022-02-25] MEDS: NICOTINE 14 MG/24 HOURS TOPICAL PATCH TD SCH (10:57)
[2022-02-25] MEDS: PRENATAL VITAMINS W/ FOLIC ACID TABLET (FP) PO SCH (10:58)
[2022-02-25] MEDS: GABAPENTIN 100 MG CAPSULE PO SCH (22:44)
[2022-02-25] MEDS: MELATONIN 5 MG TABLETS PO PRN (22:44)
[2022-02-25] MEDS: THIAMINE HCL 100 MG TABLET (FP) PO SCH (22:44)
[2022-02-26] MEDS ORDERED: diazePAM 5 MG TABLET PO ONE (06:00)
[2022-02-26] MEDS ORDERED: methaDONE HCL 10 MG TABLET (FOR DETOX USE ONLY) PO ONE (10:00)
[2022-02-26] MEDS: NICOTINE 14 MG/24 HOURS TOPICAL PATCH TD SCH (10:40)
[2022-02-26] MEDS: PRENATAL VITAMINS W/ FOLIC ACID TABLET (FP) PO SCH (10:40)
[2022-02-26] MEDS: METHOCARBAMOL 500 MG TABLET PO PRN ×2 (10:41→22:21)
[2022-02-26] MEDS: GABAPENTIN 100 MG CAPSULE PO SCH (22:19)
[2022-02-26] MEDS: MELATONIN 5 MG TABLETS PO PRN (22:19)
[2022-02-26] MEDS: THIAMINE HCL 100 MG TABLET (FP) PO SCH (22:19)
[2022-02-27 08:51] VITALS: BP 116/63; PULSE 64; TEMP 98.1
== END 2022-02-27 10:01 | disposition home or self-care (01) | DRG 773 ==
LOC: YASAS 15:35 → Y3N 20:55
PROVIDERS: ADMIT Allergy & Immunology; ATTEND Allergy & Immunology
PROC: HZ2ZZZZ Detoxification Services for Substance Abuse Treatment (ICD-10-PCS; principal; 2022-02-22)
DX: F11.23 Opioid dependence with withdrawal (principal); F10.230 Alcohol dependence with withdrawal, uncomplicated; F14.20 Cocaine dependence, uncomplicated; F17.210 Nicotine dependence, cigarettes, uncomplicated; M79.604 Pain in right leg; Z86.19 Personal history of other infectious and parasitic diseases; Z86.11 Personal history of tuberculosis
CPT/HCPCS: 36415; 80053; 85027; 86780; C9803-CS; U0003; U0005

== ENCOUNTER 2022-04-08 13:10 | Inpatient (IN) | payer BC ==
[2022-04-08] MEDS ORDERED: DICYCLOMINE HCL 10 MG CAPSULE PO PRN (14:44)
[2022-04-08] MEDS ORDERED: BISMUTH SUBSALICYLATE 524 MG/30 ML PO PRN (14:44)
[2022-04-08] MEDS ORDERED: ONDANSETRON *ODT* 4 MG TABLET SL PRN (14:44)
[2022-04-08] MEDS ORDERED: NICOTINE 10 MG CARTRIDGE (INHALER) IH PRN (14:44)
[2022-04-08] MEDS ORDERED: BENZOCAINE/MENTHOL (CHLORASEPTIC ) LOZENGE MM PRN (14:44)
[2022-04-08] MEDS ORDERED: LOPERAMIDE HCL 2 MG CAPSULE PO PRN (14:44)
[2022-04-08] MEDS ORDERED: MAGNESIUM HYDROX 2400MG/30ML ORAL SUSPENSION 30 ML CUP PO PRN (14:44)
[2022-04-08] MEDS ORDERED: MAG HYDROX/AL HYDROX/SIMETH 30 ML UNIT-DOSE CUP PO PRN (14:44)
[2022-04-08] MEDS ORDERED: MAGNESIUM CITRATE 300 ML BOTTLE PO PRN (14:44)
[2022-04-08] MEDS ORDERED: ACETAMINOPHEN 325 MG TABLET (FP) PO PRN ×2 (14:44)
[2022-04-08] MEDS ORDERED: diazePAM 5 MG TABLET PO PRN (14:44)
[2022-04-08] MEDS ORDERED: cloNIDine HCL 0.1 MG TABLET PO PRN (14:44)
[2022-04-08] MEDS ORDERED: METHOCARBAMOL 500 MG TABLET PO PRN (14:44)
[2022-04-08 16:42] VITALS: BMI 25.8
[2022-04-08] MEDS ORDERED: methaDONE HCL 10 MG TABLET (FOR DETOX USE ONLY) PO ONE (18:00)
[2022-04-08] MEDS: diazePAM 5 MG TABLET PO SCH ×2 (18:06→23:14)
[2022-04-08] MEDS: hydrOXYzine PAMOATE 25 MG CAPSULE (FP) PO SCH ×2 (18:06→23:14)
[2022-04-08] MEDS: PRENATAL VITAMINS W/ FOLIC ACID TABLET (FP) PO SCH (18:06)
[2022-04-08] MEDS: NICOTINE 14 MG/24 HOURS TOPICAL PATCH TD SCH (18:15)
[2022-04-08] MEDS: THIAMINE HCL 100 MG TABLET (FP) PO SCH (23:14)
[2022-04-08] MEDS: GABAPENTIN 300 MG CAPSULE PO SCH (23:14)
[2022-04-08] MEDS: MELATONIN 5 MG TABLETS PO SCH (23:14)
[2022-04-09] MEDS: diazePAM 5 MG TABLET PO SCH ×4 (06:52→22:28)
[2022-04-09] MEDS: hydrOXYzine PAMOATE 25 MG CAPSULE (FP) PO SCH ×5 (06:53→22:27)
[2022-04-09] MEDS ORDERED: methaDONE HCL 10 MG TABLET (FOR DETOX USE ONLY) ONE (09:44)
[2022-04-09 10:01] LABS: HEMATOCRIT 37.2 % (35.4-49); HEMOGLOBIN 12.6 GM/dL (11.7-16.9); MCH 29.6 pg (25.7-33.7); MEAN CELL VOLUME 86.9 fl (80-96); MEAN PLT VOLUME 8.3 fl (7.5-11.1); PLATELET COUNT 186 10^3/uL (134-434); RBC 4.27 M/mm3 (4.00-5.60); RDW 13.6 % (11.9-15.9)
[2022-04-09 10:35] LABS: ALBUMIN 3.4 g/dl (3.4-5.0); BLOOD UREA NITROGEN 15.7 mg/dL (7-18); CALCIUM 9.5 mg/dL (8.5-10.1)
[2022-04-09 10:37] LABS: CREATININE 0.9 mg/dL (0.55-1.3)
[2022-04-09 10:39] LABS: BILIRUBIN,TOTAL 0.4 mg/dL (0.2-1); TOT PROT 6.7 g/dl (6.4-8.2)
[2022-04-09] MEDS: GABAPENTIN 300 MG CAPSULE PO SCH ×2 (10:41→22:27)
[2022-04-09] MEDS: NICOTINE 14 MG/24 HOURS TOPICAL PATCH TD SCH (10:42)
[2022-04-09] MEDS: PRENATAL VITAMINS W/ FOLIC ACID TABLET (FP) PO SCH (10:42)
[2022-04-09] MEDS ORDERED: GABAPENTIN 300 MG CAPSULE PO SCH (22:00)
[2022-04-09] MEDS: MELATONIN 5 MG TABLETS PO SCH (22:27)
[2022-04-09] MEDS: THIAMINE HCL 100 MG TABLET (FP) PO SCH (22:27)
[2022-04-10] MEDS: IBUPROFEN 400 MG TABLET (FP) PO PRN (07:06)
[2022-04-10] MEDS: hydrOXYzine PAMOATE 25 MG CAPSULE (FP) PO SCH ×5 (07:07→22:29)
[2022-04-10] MEDS: diazePAM 5 MG TABLET PO SCH ×3 (07:10→22:30)
[2022-04-10] MEDS ORDERED: methaDONE HCL 10 MG TABLET (FOR DETOX USE ONLY) PO ONE (10:00)
[2022-04-10] MEDS: GABAPENTIN 300 MG CAPSULE PO SCH ×2 (10:07→22:30)
[2022-04-10] MEDS: PRENATAL VITAMINS W/ FOLIC ACID TABLET (FP) PO SCH (11:13)
[2022-04-10] MEDS: NICOTINE 14 MG/24 HOURS TOPICAL PATCH TD SCH (11:13)
[2022-04-10 14:09] LABS: SARS-CoV-2 NAA Not Detected (Not Detected)
[2022-04-10] MEDS: THIAMINE HCL 100 MG TABLET (FP) PO SCH (22:29)
[2022-04-10] MEDS: MELATONIN 5 MG TABLETS PO SCH (22:29)
[2022-04-11] MEDS: hydrOXYzine PAMOATE 25 MG CAPSULE (FP) PO SCH ×5 (06:52→22:02)
[2022-04-11] MEDS: diazePAM 5 MG TABLET PO SCH ×2 (06:52→19:35)
[2022-04-11] MEDS: IBUPROFEN 400 MG TABLET (FP) PO PRN (07:02)
[2022-04-11] MEDS ORDERED: methaDONE HCL 10 MG TABLET (FOR DETOX USE ONLY) ONE (08:31)
[2022-04-11] MEDS: NICOTINE 14 MG/24 HOURS TOPICAL PATCH TD SCH (10:02)
[2022-04-11] MEDS: GABAPENTIN 300 MG CAPSULE PO SCH ×2 (10:02→22:02)
[2022-04-11] MEDS: PRENATAL VITAMINS W/ FOLIC ACID TABLET (FP) PO SCH (10:02)
[2022-04-11] MEDS: MELATONIN 5 MG TABLETS PO SCH (22:02)
[2022-04-11] MEDS: THIAMINE HCL 100 MG TABLET (FP) PO SCH (22:02)
[2022-04-12] MEDS ORDERED: diazePAM 5 MG TABLET PO ONE (06:00)
[2022-04-12] MEDS: IBUPROFEN 400 MG TABLET (FP) PO PRN ×2 (06:11→22:19)
[2022-04-12] MEDS: hydrOXYzine PAMOATE 25 MG CAPSULE (FP) PO SCH ×5 (06:12→22:18)
[2022-04-12] MEDS ORDERED: methaDONE HCL 10 MG TABLET (FOR DETOX USE ONLY) PO ONE (10:00)
[2022-04-12] MEDS: GABAPENTIN 300 MG CAPSULE PO SCH ×2 (10:37→22:18)
[2022-04-12] MEDS: PRENATAL VITAMINS W/ FOLIC ACID TABLET (FP) PO SCH (10:37)
[2022-04-12] MEDS: NICOTINE 14 MG/24 HOURS TOPICAL PATCH TD SCH (10:37)
[2022-04-12] MEDS: THIAMINE HCL 100 MG TABLET (FP) PO SCH (22:18)
[2022-04-12] MEDS: MELATONIN 5 MG TABLETS PO SCH (22:18)
[2022-04-13] MEDS: hydrOXYzine PAMOATE 25 MG CAPSULE (FP) PO SCH (06:28)
[2022-04-13 08:42] VITALS: BP 139/95; PULSE 82; TEMP 96
== END 2022-04-13 09:00 | disposition home or self-care (01) | DRG 773 ==
LOC: YASAS 13:10 → Y3N 17:02
PROVIDERS: ADMIT Allergy & Immunology; ATTEND Surgery
PROC: HZ2ZZZZ Detoxification Services for Substance Abuse Treatment (ICD-10-PCS; principal; 2022-04-08)
DX: F11.23 Opioid dependence with withdrawal (principal); F13.230 Sedative, hypnotic or anxiolytic dependence with withdrawal, uncomplicated; F10.20 Alcohol dependence, uncomplicated; F14.20 Cocaine dependence, uncomplicated; F17.210 Nicotine dependence, cigarettes, uncomplicated; G62.9 Polyneuropathy, unspecified; Z86.11 Personal history of tuberculosis
CPT/HCPCS: 36415; 80053; 85027; 86780; 93005; 93010; C9803-CS; U0003; U0005

== ENCOUNTER 2022-05-27 09:46 | Inpatient (IN) | payer BC ==
[2022-05-27 11:14] VITALS: BMI 27.2
[2022-05-27] MEDS ORDERED: DICYCLOMINE HCL 10 MG CAPSULE PO PRN (12:37)
[2022-05-27] MEDS ORDERED: MAG HYDROX/AL HYDROX/SIMETH 30 ML UNIT-DOSE CUP PO PRN (12:37)
[2022-05-27] MEDS ORDERED: MAGNESIUM HYDROX 2400MG/30ML ORAL SUSPENSION 30 ML CUP PO PRN (12:37)
[2022-05-27] MEDS ORDERED: NICOTINE 10 MG CARTRIDGE (INHALER) IH PRN (12:37)
[2022-05-27] MEDS ORDERED: LOPERAMIDE HCL 2 MG CAPSULE PO PRN (12:37)
[2022-05-27] MEDS ORDERED: cloNIDine HCL 0.1 MG TABLET PO PRN (12:37)
[2022-05-27] MEDS ORDERED: METHOCARBAMOL 500 MG TABLET PO PRN (12:37)
[2022-05-27] MEDS ORDERED: BENZOCAINE/MENTHOL (CHLORASEPTIC ) LOZENGE MM PRN (12:37)
[2022-05-27] MEDS ORDERED: IBUPROFEN 400 MG TABLET (FP) PO PRN (12:37)
[2022-05-27] MEDS ORDERED: IBUPROFEN 600 MG TABLET (FP) PO PRN (12:37)
[2022-05-27] MEDS ORDERED: BISMUTH SUBSALICYLATE 524 MG/30 ML PO PRN (12:37)
[2022-05-27] MEDS ORDERED: MAGNESIUM CITRATE 300 ML BOTTLE PO PRN (12:37)
[2022-05-27] MEDS ORDERED: ACETAMINOPHEN 325 MG TABLET (FP) PO PRN ×2 (12:37)
[2022-05-27] MEDS ORDERED: ONDANSETRON *ODT* 4 MG TABLET SL PRN (12:37)
[2022-05-27] MEDS ORDERED: methaDONE HCL 10 MG TABLET (FOR DETOX USE ONLY) PO ONE (13:00)
[2022-05-27] MEDS: diazePAM 5 MG TABLET PO PRN ×2 (13:49→22:12)
[2022-05-27] MEDS: PRENATAL VITAMINS W/ FOLIC ACID TABLET (FP) PO SCH (13:54)
[2022-05-27] MEDS: hydrOXYzine PAMOATE 25 MG CAPSULE (FP) PO SCH ×3 (13:54→22:12)
[2022-05-27] MEDS: NICOTINE 14 MG/24 HOURS TOPICAL PATCH TD SCH (13:54)
[2022-05-27 17:11] LABS: ALBUMIN 3.8 g/dl (3.4-5.0); BLOOD UREA NITROGEN 17.8 mg/dL (7-18); CALCIUM 9.2 mg/dL (8.5-10.1); HEMATOCRIT 35.8 % (35.4-49); HEMOGLOBIN 12.1 GM/dL (11.7-16.9); MCH 29.5 pg (25.7-33.7); MCHC 33.8 g/dl (32.0-35.9); MEAN CELL VOLUME 87.5 fl (80-96); MEAN PLT VOLUME 8.6 fl (7.5-11.1); PLATELET COUNT 250 10^3/uL (134-434); RBC 4.09 M/mm3 (4.00-5.60); RDW 13.3 % (11.9-15.9); WHITE BLOOD COUNT 6.7 K/mm3 (4.0-10.0)
[2022-05-27 17:15] LABS: CREATININE 0.8 mg/dL (0.55-1.3)
[2022-05-27 17:16] LABS: BILIRUBIN,TOTAL 0.9 mg/dL (0.2-1); TOT PROT 7.5 g/dl (6.4-8.2)
[2022-05-27] MEDS: MELATONIN 5 MG TABLETS PO SCH (22:12)
[2022-05-27] MEDS: THIAMINE HCL 100 MG TABLET (FP) PO SCH (22:12)
[2022-05-27] MEDS: GABAPENTIN 300 MG CAPSULE PO SCH (22:12)
[2022-05-28] MEDS: hydrOXYzine PAMOATE 25 MG CAPSULE (FP) PO SCH ×5 (06:55→22:08)
[2022-05-28] MEDS ORDERED: methaDONE HCL 10 MG TABLET (FOR DETOX USE ONLY) ONE (08:51)
[2022-05-28] MEDS: GABAPENTIN 300 MG CAPSULE PO SCH ×2 (10:07→22:08)
[2022-05-28] MEDS: PRENATAL VITAMINS W/ FOLIC ACID TABLET (FP) PO SCH (10:07)
[2022-05-28] MEDS: NICOTINE 14 MG/24 HOURS TOPICAL PATCH TD SCH (10:08)
[2022-05-28] MEDS: diazePAM 5 MG TABLET PO PRN ×3 (10:09→22:08)
[2022-05-28] MEDS: THIAMINE HCL 100 MG TABLET (FP) PO SCH (22:08)
[2022-05-28] MEDS: MELATONIN 5 MG TABLETS PO SCH (22:08)
[2022-05-29] MEDS: hydrOXYzine PAMOATE 25 MG CAPSULE (FP) PO SCH ×5 (07:20→22:10)
[2022-05-29] MEDS ORDERED: methaDONE HCL 10 MG TABLET (FOR DETOX USE ONLY) PO ONE (10:00)
[2022-05-29] MEDS: NICOTINE 14 MG/24 HOURS TOPICAL PATCH TD SCH (10:09)
[2022-05-29] MEDS: PRENATAL VITAMINS W/ FOLIC ACID TABLET (FP) PO SCH (10:09)
[2022-05-29] MEDS: GABAPENTIN 300 MG CAPSULE PO SCH ×2 (10:10→22:10)
[2022-05-29] MEDS: diazePAM 5 MG TABLET PO PRN (10:11)
[2022-05-29] MEDS: MELATONIN 5 MG TABLETS PO SCH (22:10)
[2022-05-29] MEDS: THIAMINE HCL 100 MG TABLET (FP) PO SCH (22:11)
[2022-05-30] MEDS: hydrOXYzine PAMOATE 25 MG CAPSULE (FP) PO SCH ×5 (05:55→22:49)
[2022-05-30] MEDS ORDERED: methaDONE HCL 10 MG TABLET (FOR DETOX USE ONLY) ONE (10:08)
[2022-05-30] MEDS: NICOTINE 14 MG/24 HOURS TOPICAL PATCH TD SCH (10:21)
[2022-05-30] MEDS: PRENATAL VITAMINS W/ FOLIC ACID TABLET (FP) PO SCH (10:22)
[2022-05-30] MEDS: diazePAM 5 MG TABLET PO PRN (10:22)
[2022-05-30] MEDS: GABAPENTIN 300 MG CAPSULE PO SCH ×2 (10:23→22:49)
[2022-05-30] MEDS ORDERED: cloNIDine HCL 0.1 MG TABLET PO PRN (12:43)
[2022-05-30] MEDS: THIAMINE HCL 100 MG TABLET (FP) PO SCH (22:49)
[2022-05-30] MEDS: MELATONIN 5 MG TABLETS PO SCH (22:49)
[2022-05-31] MEDS: hydrOXYzine PAMOATE 25 MG CAPSULE (FP) PO SCH ×5 (07:13→22:13)
[2022-05-31] MEDS ORDERED: methaDONE HCL 10 MG TABLET (FOR DETOX USE ONLY) PO ONE (10:00)
[2022-05-31] MEDS: PRENATAL VITAMINS W/ FOLIC ACID TABLET (FP) PO SCH (10:14)
[2022-05-31] MEDS: GABAPENTIN 300 MG CAPSULE PO SCH ×2 (10:15→22:13)
[2022-05-31] MEDS: NICOTINE 14 MG/24 HOURS TOPICAL PATCH TD SCH (10:16)
[2022-05-31] MEDS: THIAMINE HCL 100 MG TABLET (FP) PO SCH (22:13)
[2022-05-31] MEDS: MELATONIN 5 MG TABLETS PO SCH (22:13)
[2022-06-01] MEDS: hydrOXYzine PAMOATE 25 MG CAPSULE (FP) PO SCH (06:23)
[2022-06-01 09:06] VITALS: BP 142/96; PULSE 87; TEMP 96.2
== END 2022-06-01 09:40 | disposition home or self-care (01) | DRG 773 ==
LOC: YASAS 09:46 → Y3N 12:58
PROVIDERS: ADMIT Allergy & Immunology; ATTEND Surgery
PROC: HZ2ZZZZ Detoxification Services for Substance Abuse Treatment (ICD-10-PCS; principal; 2022-05-27)
DX: F11.23 Opioid dependence with withdrawal (principal); F14.20 Cocaine dependence, uncomplicated; F17.210 Nicotine dependence, cigarettes, uncomplicated; F19.24 Other psychoactive substance dependence with psychoactive substance-induced mood disorder; F43.10 Post-traumatic stress disorder, unspecified; G62.9 Polyneuropathy, unspecified; G25.81 Restless legs syndrome; B18.2 Chronic viral hepatitis C; R03.0 Elevated blood-pressure reading, without diagnosis of hypertension; Z86.11 Personal history of tuberculosis
CPT/HCPCS: 36415; 80053; 85027; 86780; 87811; C9803-CS; J0735; U0003; U0005

== ENCOUNTER 2022-07-06 12:15 | Inpatient (IN) | payer BC ==
[2022-07-06 13:23] VITALS: BMI 26.5
[2022-07-06] MEDS ORDERED: IBUPROFEN 400 MG TABLET (FP) PO PRN (14:29)
[2022-07-06] MEDS ORDERED: ACETAMINOPHEN 325 MG TABLET (FP) PO PRN ×2 (14:29)
[2022-07-06] MEDS ORDERED: BENZOCAINE/MENTHOL (CHLORASEPTIC ) LOZENGE MM PRN (14:29)
[2022-07-06] MEDS ORDERED: MAG HYDROX/AL HYDROX/SIMETH 30 ML UNIT-DOSE CUP PO PRN (14:29)
[2022-07-06] MEDS ORDERED: MAGNESIUM HYDROX 2400MG/30ML ORAL SUSPENSION 30 ML CUP PO PRN (14:29)
[2022-07-06] MEDS ORDERED: NICOTINE POLACRILEX 4 MG GUM BUC PRN (14:29)
[2022-07-06] MEDS ORDERED: cloNIDine HCL 0.1 MG TABLET PO PRN (14:29)
[2022-07-06] MEDS ORDERED: methaDONE HCL 10 MG TABLET (FOR DETOX USE ONLY) PO ONE (14:29)
[2022-07-06] MEDS ORDERED: DICYCLOMINE HCL 10 MG CAPSULE PO PRN (14:29)
[2022-07-06] MEDS ORDERED: LOPERAMIDE HCL 2 MG CAPSULE PO PRN (14:29)
[2022-07-06] MEDS ORDERED: BISMUTH SUBSALICYLATE 262 MG/15 ML BTL PO PRN (14:29)
[2022-07-06] MEDS ORDERED: MAGNESIUM CITRATE 300 ML BOTTLE PO PRN (14:29)
[2022-07-06] MEDS ORDERED: ONDANSETRON *ODT* 4 MG TABLET SL PRN (14:29)
[2022-07-06] MEDS ORDERED: NICOTINE 10 MG CARTRIDGE (INHALER) IH PRN (14:29)
[2022-07-06] MEDS ORDERED: NALOXONE HCL (KLOXXADO) 8 MG SPRAY NS PRN (14:29)
[2022-07-06] MEDS: diazePAM 5 MG TABLET PO SCH ×2 (17:05→23:30)
[2022-07-06] MEDS: hydrOXYzine PAMOATE 25 MG CAPSULE (FP) PO SCH ×2 (17:42→23:13)
[2022-07-06] MEDS: diazePAM 5 MG TABLET PO PRN (17:44)
[2022-07-06] MEDS: diazePAM 5 MG TABLET PO ONE (17:49)
[2022-07-06] MEDS: MELATONIN 5 MG TABLETS PO SCH (23:13)
[2022-07-06] MEDS: GABAPENTIN 300 MG CAPSULE PO SCH (23:13)
[2022-07-06] MEDS: THIAMINE HCL 100 MG TABLET (FP) PO SCH (23:13)
[2022-07-07] MEDS: hydrOXYzine PAMOATE 25 MG CAPSULE (FP) PO SCH ×5 (05:54→23:11)
[2022-07-07] MEDS: diazePAM 5 MG TABLET PO SCH ×4 (05:56→23:10)
[2022-07-07] MEDS: GABAPENTIN 300 MG CAPSULE PO SCH ×2 (10:04→23:10)
[2022-07-07] MEDS: PRENATAL VITAMINS W/ FOLIC ACID TABLET (FP) PO SCH (10:04)
[2022-07-07 10:12] LABS: HEMATOCRIT 35.4 % (35.4-49); HEMOGLOBIN 11.9 GM/dL (11.7-16.9); MCH 29.1 pg (25.7-33.7); MCHC 33.7 g/dl (32.0-35.9); MEAN CELL VOLUME 86.4 fl (80-96); MEAN PLT VOLUME 8.9 fl (7.5-11.1); PLATELET COUNT 180 10^3/uL (134-434); RDW 13.2 % (11.9-15.9); WHITE BLOOD COUNT 5.1 K/mm3 (4.0-10.0)
[2022-07-07 11:30] LABS: ALBUMIN 3.4 g/dl (3.4-5.0); BLOOD UREA NITROGEN 14.2 mg/dL (7-18)
[2022-07-07 11:33] LABS: CREATININE 0.9 mg/dL (0.55-1.3)
[2022-07-07 11:34] LABS: BILIRUBIN,TOTAL 0.4 mg/dL (0.2-1)
[2022-07-07 11:35] LABS: TOT PROT 6.9 g/dl (6.4-8.2)
[2022-07-07] MEDS: IBUPROFEN 600 MG TABLET (FP) PO PRN (17:37)
[2022-07-07] MEDS: THIAMINE HCL 100 MG TABLET (FP) PO SCH (23:11)
[2022-07-07] MEDS: MELATONIN 5 MG TABLETS PO SCH (23:11)
[2022-07-08] MEDS: diazePAM 5 MG TABLET PO SCH ×3 (07:53→22:27)
[2022-07-08] MEDS: hydrOXYzine PAMOATE 25 MG CAPSULE (FP) PO SCH ×5 (07:53→22:28)
[2022-07-08] MEDS ORDERED: methaDONE HCL 10 MG TABLET (FOR DETOX USE ONLY) PO ONE (10:00)
[2022-07-08] MEDS: PRENATAL VITAMINS W/ FOLIC ACID TABLET (FP) PO SCH (10:17)
[2022-07-08] MEDS: GABAPENTIN 300 MG CAPSULE PO SCH ×2 (10:17→22:28)
[2022-07-08] MEDS: diazePAM 5 MG TABLET PO PRN (16:06)
[2022-07-08] MEDS: IBUPROFEN 600 MG TABLET (FP) PO PRN (20:38)
[2022-07-08] MEDS: METHOCARBAMOL 500 MG TABLET PO PRN (20:38)
[2022-07-08] MEDS: MELATONIN 5 MG TABLETS PO SCH (22:27)
[2022-07-08] MEDS: THIAMINE HCL 100 MG TABLET (FP) PO SCH (22:28)
[2022-07-09] MEDS: diazePAM 5 MG TABLET PO SCH ×2 (08:10→17:49)
[2022-07-09] MEDS: hydrOXYzine PAMOATE 25 MG CAPSULE (FP) PO SCH ×5 (08:10→22:23)
[2022-07-09] MEDS: GABAPENTIN 300 MG CAPSULE PO SCH ×2 (10:28→22:23)
[2022-07-09] MEDS: PRENATAL VITAMINS W/ FOLIC ACID TABLET (FP) PO SCH (10:28)
[2022-07-09] MEDS: THIAMINE HCL 100 MG TABLET (FP) PO SCH (22:23)
[2022-07-09] MEDS: MELATONIN 5 MG TABLETS PO SCH (22:23)
[2022-07-09] MEDS: METHOCARBAMOL 500 MG TABLET PO PRN (22:24)
[2022-07-10] MEDS: hydrOXYzine PAMOATE 25 MG CAPSULE (FP) PO SCH ×5 (07:27→22:07)
[2022-07-10] MEDS: diazePAM 5 MG TABLET PO ONE (07:27)
[2022-07-10] MEDS ORDERED: methaDONE HCL 10 MG TABLET (FOR DETOX USE ONLY) PO ONE (10:00)
[2022-07-10] MEDS: GABAPENTIN 300 MG CAPSULE PO SCH ×2 (10:20→22:06)
[2022-07-10] MEDS: METHOCARBAMOL 500 MG TABLET PO PRN ×2 (10:20→22:09)
[2022-07-10] MEDS: PRENATAL VITAMINS W/ FOLIC ACID TABLET (FP) PO SCH (10:20)
[2022-07-10 17:16] VITALS: RESP 18
[2022-07-10] MEDS: THIAMINE HCL 100 MG TABLET (FP) PO SCH (22:07)
[2022-07-10] MEDS: MELATONIN 5 MG TABLETS PO SCH (22:07)
[2022-07-11] MEDS: hydrOXYzine PAMOATE 25 MG CAPSULE (FP) PO SCH ×2 (06:10→11:34)
[2022-07-11 09:51] VITALS: BP 119/79; PULSE 98; TEMP 98.1
[2022-07-11] MEDS: GABAPENTIN 300 MG CAPSULE PO SCH (11:34)
[2022-07-11] MEDS: PRENATAL VITAMINS W/ FOLIC ACID TABLET (FP) PO SCH (11:34)
== END 2022-07-11 09:03 | disposition home or self-care (01) | DRG 773 ==
LOC: YASAS 12:15 → Y3N 13:57
PROVIDERS: ADMIT Allergy & Immunology; ATTEND Surgery
PROC: HZ2ZZZZ Detoxification Services for Substance Abuse Treatment (ICD-10-PCS; principal; 2022-07-06)
DX: F11.23 Opioid dependence with withdrawal (principal); F13.20 Sedative, hypnotic or anxiolytic dependence, uncomplicated; F17.210 Nicotine dependence, cigarettes, uncomplicated; F41.8 Other specified anxiety disorders; F32.A Depression, unspecified; F43.10 Post-traumatic stress disorder, unspecified; G25.81 Restless legs syndrome; M54.31 Sciatica, right side; Z86.19 Personal history of other infectious and parasitic diseases; Z99.89 Dependence on other enabling machines and devices
CPT/HCPCS: 36415; 71046-TC-FY; 80053; 85027; 86780; 87811; C9803-CS; U0003; U0005

== ENCOUNTER 2022-07-29 13:01 | Inpatient (IN) | payer BC ==
[2022-07-29 13:24] VITALS: BMI 26.9
[2022-07-29] MEDS ORDERED: DICYCLOMINE HCL 10 MG CAPSULE PO PRN (14:59)
[2022-07-29] MEDS ORDERED: IBUPROFEN 400 MG TABLET (FP) PO PRN (14:59)
[2022-07-29] MEDS ORDERED: MAGNESIUM CITRATE 300 ML BOTTLE PO PRN (14:59)
[2022-07-29] MEDS ORDERED: LOPERAMIDE HCL 2 MG CAPSULE PO PRN (14:59)
[2022-07-29] MEDS ORDERED: ONDANSETRON *ODT* 4 MG TABLET SL PRN (14:59)
[2022-07-29] MEDS ORDERED: NICOTINE 10 MG CARTRIDGE (INHALER) IH PRN (14:59)
[2022-07-29] MEDS ORDERED: MAG HYDROX/AL HYDROX/SIMETH 30 ML UNIT-DOSE CUP PO PRN (14:59)
[2022-07-29] MEDS ORDERED: MAGNESIUM HYDROX 2400MG/30ML ORAL SUSPENSION 30 ML CUP PO PRN (14:59)
[2022-07-29] MEDS ORDERED: ACETAMINOPHEN 325 MG TABLET (FP) PO PRN ×2 (14:59)
[2022-07-29] MEDS ORDERED: BENZOCAINE/MENTHOL (CHLORASEPTIC ) LOZENGE MM PRN (14:59)
[2022-07-29] MEDS ORDERED: BISMUTH SUBSALICYLATE 524 MG/30 ML PO PRN (14:59)
[2022-07-29] MEDS ORDERED: methaDONE HCL 10 MG TABLET (FOR DETOX USE ONLY) PO ONE (15:15)
[2022-07-29] MEDS: clonazePAM 0.5 MG ODT TABLETS SL PRN (16:55)
[2022-07-29] MEDS: PRENATAL VITAMINS W/ FOLIC ACID TABLET (FP) PO SCH (16:57)
[2022-07-29] MEDS: NICOTINE 21 MG/24 HOURS TOPICAL PATCH TD SCH (17:17)
[2022-07-29] MEDS: hydrOXYzine PAMOATE 25 MG CAPSULE (FP) PO SCH ×2 (18:32→22:07)
[2022-07-29] MEDS: GABAPENTIN 300 MG CAPSULE PO SCH (22:07)
[2022-07-29] MEDS: DOXYCYCLINE HYCLATE 100 MG CAPSULE PO SCH (22:07)
[2022-07-29] MEDS: THIAMINE HCL 100 MG TABLET (FP) PO SCH (22:11)
[2022-07-29] MEDS: MELATONIN 5 MG TABLETS PO SCH (23:07)
[2022-07-30] MEDS: hydrOXYzine PAMOATE 25 MG CAPSULE (FP) PO SCH ×5 (05:45→22:09)
[2022-07-30] MEDS: DOXYCYCLINE HYCLATE 100 MG CAPSULE PO SCH ×2 (10:05→22:08)
[2022-07-30] MEDS: PRENATAL VITAMINS W/ FOLIC ACID TABLET (FP) PO SCH (10:05)
[2022-07-30] MEDS: GABAPENTIN 300 MG CAPSULE PO SCH ×2 (10:05→22:08)
[2022-07-30] MEDS: cloNIDine HCL 0.1 MG TABLET PO PRN ×3 (10:07→22:08)
[2022-07-30] MEDS: NICOTINE 21 MG/24 HOURS TOPICAL PATCH TD SCH (11:04)
[2022-07-30 11:08] LABS: HEMATOCRIT 36.1 % (35.4-49); HEMOGLOBIN 12.2 GM/dL (11.7-16.9); MCH 29.4 pg (25.7-33.7); MCHC 33.8 g/dl (32.0-35.9); MEAN CELL VOLUME 86.9 fl (80-96); MEAN PLT VOLUME 9.5 fl (7.5-11.1); PLATELET COUNT 206 10^3/uL (134-434); RBC 4.15 M/mm3 (4.00-5.60); RDW 13.9 % (11.9-15.9); WHITE BLOOD COUNT 6.1 K/mm3 (4.0-10.0)
[2022-07-30 11:18] LABS: CALCIUM 9.4 mg/dL (8.5-10.1)
[2022-07-30 11:19] LABS: ALBUMIN 3.8 g/dl (3.4-5.0); BLOOD UREA NITROGEN 20.6 mg/dL (7-18)
[2022-07-30 11:22] LABS: BILIRUBIN,TOTAL 0.4 mg/dL (0.2-1); CREATININE 1.1 mg/dL (0.55-1.3)
[2022-07-30] MEDS: clonazePAM 0.5 MG ODT TABLETS SL PRN (17:15)
[2022-07-30] MEDS: THIAMINE HCL 100 MG TABLET (FP) PO SCH (22:08)
[2022-07-30] MEDS: MELATONIN 5 MG TABLETS PO SCH (22:10)
[2022-07-31] MEDS: hydrOXYzine PAMOATE 25 MG CAPSULE (FP) PO SCH ×5 (06:25→22:07)
[2022-07-31] MEDS ORDERED: methaDONE HCL 10 MG TABLET (FOR DETOX USE ONLY) PO ONE (10:00)
[2022-07-31] MEDS: METHOCARBAMOL 500 MG TABLET PO PRN ×2 (10:05→17:48)
[2022-07-31] MEDS: DOXYCYCLINE HYCLATE 100 MG CAPSULE PO SCH ×2 (10:06→22:07)
[2022-07-31] MEDS: clonazePAM 0.5 MG ODT TABLETS SL PRN ×2 (10:06→22:07)
[2022-07-31] MEDS: GABAPENTIN 300 MG CAPSULE PO SCH ×2 (10:06→22:07)
[2022-07-31] MEDS: NICOTINE 21 MG/24 HOURS TOPICAL PATCH TD SCH (10:08)
[2022-07-31] MEDS: PRENATAL VITAMINS W/ FOLIC ACID TABLET (FP) PO SCH (10:08)
[2022-07-31] MEDS: IBUPROFEN 600 MG TABLET (FP) PO PRN (17:48)
[2022-07-31] MEDS: MELATONIN 5 MG TABLETS PO SCH (22:07)
[2022-07-31] MEDS: THIAMINE HCL 100 MG TABLET (FP) PO SCH (22:07)
[2022-08-01] MEDS: hydrOXYzine PAMOATE 25 MG CAPSULE (FP) PO SCH ×5 (06:22→22:22)
[2022-08-01] MEDS: DOXYCYCLINE HYCLATE 100 MG CAPSULE PO SCH ×2 (09:51→22:22)
[2022-08-01] MEDS: GABAPENTIN 300 MG CAPSULE PO SCH ×2 (09:52→22:22)
[2022-08-01] MEDS: PRENATAL VITAMINS W/ FOLIC ACID TABLET (FP) PO SCH (09:52)
[2022-08-01] MEDS: NICOTINE 21 MG/24 HOURS TOPICAL PATCH TD SCH (09:52)
[2022-08-01] MEDS: IBUPROFEN 600 MG TABLET (FP) PO PRN (17:32)
[2022-08-01] MEDS: THIAMINE HCL 100 MG TABLET (FP) PO SCH (22:21)
[2022-08-01] MEDS: MELATONIN 5 MG TABLETS PO SCH (22:22)
[2022-08-02] MEDS: hydrOXYzine PAMOATE 25 MG CAPSULE (FP) PO SCH ×5 (05:48→22:17)
[2022-08-02 06:54] VITALS: RESP 18
[2022-08-02] MEDS ORDERED: methaDONE HCL 10 MG TABLET (FOR DETOX USE ONLY) PO ONE (10:00)
[2022-08-02] MEDS: PRENATAL VITAMINS W/ FOLIC ACID TABLET (FP) PO SCH (10:09)
[2022-08-02] MEDS: NICOTINE 21 MG/24 HOURS TOPICAL PATCH TD SCH (10:11)
[2022-08-02] MEDS: DOXYCYCLINE HYCLATE 100 MG CAPSULE PO SCH (10:11)
[2022-08-02] MEDS: GABAPENTIN 300 MG CAPSULE PO SCH ×2 (10:11→22:16)
[2022-08-02] MEDS ORDERED: DOXYCYCLINE HYCLATE 100 MG TABLET PO SCH (10:36)
[2022-08-02] MEDS: THIAMINE HCL 100 MG TABLET (FP) PO SCH (22:16)
[2022-08-02] MEDS: MELATONIN 5 MG TABLETS PO SCH (22:16)
[2022-08-03] MEDS: hydrOXYzine PAMOATE 25 MG CAPSULE (FP) PO SCH (05:09)
[2022-08-03 09:13] VITALS: BP 140/90; PULSE 79; TEMP 98
== END 2022-08-03 09:56 | disposition home or self-care (01) | DRG 773 ==
LOC: YASAS 13:01 → Y6N 16:24
PROVIDERS: ADMIT Allergy & Immunology; ATTEND Surgery
PROC: HZ2ZZZZ Detoxification Services for Substance Abuse Treatment (ICD-10-PCS; principal; 2022-07-29)
DX: F11.23 Opioid dependence with withdrawal (principal); F17.210 Nicotine dependence, cigarettes, uncomplicated; F19.24 Other psychoactive substance dependence with psychoactive substance-induced mood disorder; G62.9 Polyneuropathy, unspecified; G25.81 Restless legs syndrome; Z86.11 Personal history of tuberculosis; Z86.19 Personal history of other infectious and parasitic diseases
CPT/HCPCS: 36415; 80053; 82962; 85027; 86780; C9803-CS; U0003; U0005

== ENCOUNTER 2022-09-14 11:39 | Inpatient (IN) | payer BC ==
[2022-09-14 12:05] VITALS: BMI 25.8
[2022-09-14] MEDS ORDERED: ACETAMINOPHEN 325 MG TABLET (FP) PO PRN ×2 (13:41)
[2022-09-14] MEDS ORDERED: MAG HYDROX/AL HYDROX/SIMETH 30 ML UNIT-DOSE CUP PO PRN (13:41)
[2022-09-14] MEDS ORDERED: hydrOXYzine PAMOATE 25 MG CAPSULE (FP) PO PRN (13:41)
[2022-09-14] MEDS ORDERED: NALOXONE HCL (KLOXXADO) 8 MG SPRAY NS PRN (13:41)
[2022-09-14] MEDS ORDERED: DICYCLOMINE HCL 10 MG CAPSULE PO PRN (13:41)
[2022-09-14] MEDS ORDERED: METHOCARBAMOL 500 MG TABLET PO PRN (13:41)
[2022-09-14] MEDS ORDERED: ONDANSETRON *ODT* 4 MG TABLET SL PRN (13:41)
[2022-09-14] MEDS ORDERED: MAGNESIUM HYDROX 2400MG/30ML ORAL SUSPENSION 30 ML CUP PO PRN (13:41)
[2022-09-14] MEDS ORDERED: BENZOCAINE/MENTHOL (CHLORASEPTIC ) LOZENGE MM PRN (13:41)
[2022-09-14] MEDS ORDERED: diazePAM 5 MG TABLET PO PRN (13:41)
[2022-09-14] MEDS ORDERED: IBUPROFEN 400 MG TABLET (FP) PO PRN (13:41)
[2022-09-14] MEDS ORDERED: MAGNESIUM CITRATE 300 ML BOTTLE PO PRN (13:41)
[2022-09-14] MEDS ORDERED: IBUPROFEN 600 MG TABLET (FP) PO PRN (13:41)
[2022-09-14] MEDS ORDERED: BISMUTH SUBSALICYLATE 524 MG/30 ML PO PRN (13:41)
[2022-09-14] MEDS ORDERED: LOPERAMIDE HCL 2 MG CAPSULE PO PRN (13:41)
[2022-09-14] MEDS ORDERED: NICOTINE 10 MG CARTRIDGE (INHALER) IH PRN (13:41)
[2022-09-14] MEDS ORDERED: methaDONE HCL 10 MG TABLET (FOR DETOX USE ONLY) PO ONE (15:10)
[2022-09-14] MEDS ORDERED: cloNIDine HCL 0.1 MG TABLET PO PRN (15:10)
[2022-09-14] MEDS: PRENATAL VITAMINS W/ FOLIC ACID TABLET (FP) PO SCH (15:40)
[2022-09-14] MEDS: NICOTINE 21 MG/24 HOURS TOPICAL PATCH TD SCH (15:41)
[2022-09-14] MEDS: diazePAM 5 MG TABLET PO SCH ×2 (17:58→22:45)
[2022-09-14] MEDS: MELATONIN 5 MG TABLETS PO SCH (22:44)
[2022-09-14] MEDS: THIAMINE HCL 100 MG TABLET (FP) PO SCH (22:44)
[2022-09-15] MEDS: diazePAM 5 MG TABLET PO SCH ×4 (06:29→22:59)
[2022-09-15] MEDS: ASPIRIN 81 MG CHEWABLE TABLETS PO SCH (10:44)
[2022-09-15] MEDS: PRENATAL VITAMINS W/ FOLIC ACID TABLET (FP) PO SCH (10:44)
[2022-09-15] MEDS: NICOTINE 21 MG/24 HOURS TOPICAL PATCH TD SCH (10:48)
[2022-09-15 14:10] LABS: HEMATOCRIT 36.6 % (35.4-49); HEMOGLOBIN 12.4 GM/dL (11.7-16.9); MCHC 33.8 g/dl (32.0-35.9); MEAN CELL VOLUME 88.7 fl (80-96); MEAN PLT VOLUME 8.5 fl (7.5-11.1); PLATELET COUNT 196 10^3/uL (134-434); RBC 4.13 M/mm3 (4.00-5.60); RDW 13.7 % (11.9-15.9); WHITE BLOOD COUNT 6.4 K/mm3 (4.0-10.0)
[2022-09-15 14:26] LABS: CALCIUM 8.7 mg/dL (8.5-10.1)
[2022-09-15 14:27] LABS: ALBUMIN 3.2 g/dl (3.4-5.0); BLOOD UREA NITROGEN 19.1 mg/dL (7-18)
[2022-09-15 14:29] LABS: CREATININE 0.9 mg/dL (0.55-1.3)
[2022-09-15 14:31] LABS: BILIRUBIN,TOTAL 0.5 mg/dL (0.2-1); TOT PROT 6.4 g/dl (6.4-8.2)
[2022-09-15] MEDS: THIAMINE HCL 100 MG TABLET (FP) PO SCH (22:58)
[2022-09-15] MEDS: MELATONIN 5 MG TABLETS PO SCH (22:58)
[2022-09-16] MEDS: diazePAM 5 MG TABLET PO SCH ×3 (05:55→22:38)
[2022-09-16] MEDS ORDERED: methaDONE HCL 10 MG TABLET (FOR DETOX USE ONLY) PO ONE (10:00)
[2022-09-16] MEDS: ASPIRIN 81 MG CHEWABLE TABLETS PO SCH (10:27)
[2022-09-16] MEDS: NICOTINE 21 MG/24 HOURS TOPICAL PATCH TD SCH (10:27)
[2022-09-16] MEDS: PRENATAL VITAMINS W/ FOLIC ACID TABLET (FP) PO SCH (10:27)
[2022-09-16] MEDS ORDERED: GABAPENTIN 300 MG CAPSULE PO ONE ×2 (19:20→20:30)
[2022-09-16] MEDS: MELATONIN 5 MG TABLETS PO SCH (22:38)
[2022-09-16] MEDS: THIAMINE HCL 100 MG TABLET (FP) PO SCH (22:38)
[2022-09-17] MEDS ORDERED: diazePAM 5 MG TABLET PO SCH (06:00)
[2022-09-17 07:14] VITALS: RESP 16; TEMP 97.3
[2022-09-17 08:54] VITALS: BP 118/73; PULSE 81
[2022-09-17] MEDS: ASPIRIN 81 MG CHEWABLE TABLETS PO SCH (10:08)
[2022-09-17] MEDS: PRENATAL VITAMINS W/ FOLIC ACID TABLET (FP) PO SCH (10:08)
[2022-09-17] MEDS: NICOTINE 21 MG/24 HOURS TOPICAL PATCH TD SCH (10:10)
[2022-09-18] MEDS ORDERED: diazePAM 5 MG TABLET PO ONE (06:00)
[2022-09-18] MEDS ORDERED: methaDONE HCL 10 MG TABLET (FOR DETOX USE ONLY) PO ONE (10:00)
== END 2022-09-17 11:23 | disposition left against medical advice (07) | DRG 770 ==
LOC: YASAS 11:39 → Y3N 14:12
PROVIDERS: ADMIT Allergy & Immunology; ATTEND Allergy & Immunology
PROC: HZ2ZZZZ Detoxification Services for Substance Abuse Treatment (ICD-10-PCS; principal; 2022-09-14)
DX: F11.23 Opioid dependence with withdrawal (principal); F10.230 Alcohol dependence with withdrawal, uncomplicated; F14.20 Cocaine dependence, uncomplicated; F13.20 Sedative, hypnotic or anxiolytic dependence, uncomplicated; F12.20 Cannabis dependence, uncomplicated; F15.10 Other stimulant abuse, uncomplicated; F17.210 Nicotine dependence, cigarettes, uncomplicated; F43.10 Post-traumatic stress disorder, unspecified; G62.9 Polyneuropathy, unspecified; G25.81 Restless legs syndrome; R76.11 Nonspecific reaction to tuberculin skin test without active tuberculosis; Z86.19 Personal history of other infectious and parasitic diseases; Z87.828 Personal history of other (healed) physical injury and trauma
CPT/HCPCS: 36415; 80053; 85027; 86780; C9803-CS; U0003; U0005